=== PATIENT | male | born 1940 | race Asian ===

== ENCOUNTER 2021-07-16 07:23 | Day surgery (SDC) | payer MEDICARE, OTHER ==
[2021-07-09 15:08] LABS: BASOPHILS % (AUTO) 0.6 % (0-1); EOSINOPHILS # (AUTO) 0.2 X10'3 (0-0.9); EOSINOPHILS % (AUTO) 3.1 % (0-6); LYMPHOCYTES # (AUTO) 1.5 X10'3 (1.1-4.8); LYMPHOCYTES % (AUTO) 29.5 % (21-51); MEAN CORPUSCULAR HEMOGLOBIN 33.5 PG (27.0-31.0); MEAN CORPUSCULAR HGB CONC 34.2 g/dL (33.0-36.5); MEAN CORPUSCULAR VOLUME 97.9 FL (78-98); MEAN PLATELET VOLUME 7.2 FL (7.4-10.4); MONOCYTES # (AUTO) 0.6 X10'3 (0-0.9); MONOCYTES % (AUTO) 11.1 % (2-12); NEUTROPHILS # (AUTO) 2.9 X10'3 (1.8-7.7); NEUTROPHILS % (AUTO) 55.7 % (42-75); PRE OP HEMOGLOBIN 15.4 g/dL (14.0-17.9); PRE OP PLATELET COUNT 181 X10'3 (140-440); RED BLOOD COUNT 4.59 X10'6 (4.70-6.10); RED CELL DISTRIBUTION WIDTH 12.6 % (11.5-14.5)
[2021-07-09 15:20] LABS: ALBUMIN/GLOBULIN RATIO 1.3 (1.1-1.5); ALKALINE PHOSPHATASE 43 IU/L (46-116); BLOOD UREA NITROGEN 19 MG/DL (7-18); BUN/CREATININE RATIO 17.9 (5.4-32.0); CALCIUM 8.7 MG/DL (8.5-10.1); CHLORIDE 107 MMOL/L (99-107); CREATININE 1.06 MG/DL (0.60-1.10); PRE OP ALT 31 U/L (30-65); PRE OP ANION GAP 10 (8-16); PRE OP AST 16 U/L (10-37); PRE OP BILIRUB, TOTAL 0.5 MG/DL (0.0-1.0); PRE OP GLUCOSE 102 MG/DL (70-104); PRE OP POTASSIUM 3.8 MMOL/L (3.4-5.1); PRE OP SODIUM 141 MMOL/L (135-145); TOTAL CARBON DIOXIDE 23.9 MMOL/L (24-32); TOTAL PROTEIN 7.2 G/DL (6.4-8.2); eGFR 67 ML/MIN
[~2021-07-16] VITALS: Ht 157.5 cm; Wt 67.6 kg
[~2021-07-16 07:23] MED LIST: BETA45OI5; CALCIUM; HYDR200T84 PO; LIDOcaine 0.5% (5mg/ml) 50ml vial ONE; LISI20TA28 PO; MAGNESIUM; OMEG-79 PO; VITAMIN D3; cefazolin/dext.iso 2gm/50ml IV ONE; famotidine 20mg tablet PO ONE; ringers solution, lacted 1,000 ML IV SCH
[2021-07-16 08:00] VITALS: BP 152/89
[2021-07-16] MEDS ORDERED: labetalol 20mg/4ml (5mg/ml) syringe IV PRN (08:35)
[2021-07-16] MEDS ORDERED: ringers solution, lacted 1,000 ML IV SCH (08:35)
[2021-07-16] MEDS ORDERED: morphine 4 MG/ML inj SYRINge IV PRN (08:35)
[2021-07-16] MEDS ORDERED: hydrALAZINE 20mg/ml inj. IV PRN (08:35)
[2021-07-16] MEDS ORDERED: morphine 2 MG/ML inj. syringe IV PRN (08:35)
[2021-07-16] MEDS ORDERED: ondansetron/PF 4mg/2ml inj IV PRN (08:35)
[2021-07-16] MEDS ORDERED: fentaNYL/PF 50MCG/1 ML 2ML syringe IV PRN ×2 (08:35)
[2021-07-16] MEDS ORDERED: MIDAZolam 1 MG/ML 5ML VIAL ONE (10:21)
[2021-07-16] MEDS ORDERED: fentaNYL/PF 50MCG/1 ML 2ML syringe ONE (10:21)
[2021-07-16] MEDS ORDERED: BUPIVAcaine 0.5% inj/PF 30 ML ONE (10:34)
[2021-07-16] MEDS ORDERED: BUPIVAcaine 0.5% inj/PF 30 ml vial IJ ONE (10:57)
[2021-07-16 11:10] VITALS: BP 124/67
--- NOTE | 2021-07-16 11:10 | NUR ---
ADMITTED TO PACU FROM OR ACCOMPANIED BY ANESTHESIA. INTIAL PHYSICAL ASSESSMENT DONE AND RECORDED. REPORT RECEIVED FROM ANESTHESIA.
[2021-07-16 11:20] VITALS: BP 112/70
[2021-07-16 11:30] VITALS: BP 100/59
[2021-07-16 11:40] VITALS: BP 97/58
[2021-07-16 11:50] VITALS: BP 97/65
--- NOTE | 2021-07-16 12:00 | NUR ---
DISCHARGE CRITERIA MET, DISCHARGE INSTRUCTIONS GIVEN, DEMONSTRATES VERBAL UNDERSTANDING. DISCHARGED HOME IN GOOD CONDITION.
== END 2021-07-16 12:00 | disposition home or self-care (01) ==
LOC: PAS 07:23
PROVIDERS: ATTEND Orthopaedic Surgery Hand Surgery
DX: G56.02 Carpal tunnel syndrome, left upper limb (principal); I10 Essential (primary) hypertension; M06.9 Rheumatoid arthritis, unspecified; Z79.899 Other long term (current) drug therapy; Z20.822 Contact with and (suspected) exposure to COVID-19; Z72.89 Other problems related to lifestyle; Z87.891 Personal history of nicotine dependence; Z98.890 Other specified postprocedural states
CPT/HCPCS: 36415; 64721; 80053; 82948; 85025; 93005; J2001; J2250; J3010; U0003; U0005; Z7506; Z7512; A4215; J0690; J3490; J7120; S0020